=== PATIENT | male | born 1975 | race Hispanic/Latino ===

== ENCOUNTER 2023-03-20 21:39 | Emergency (ER) | payer BC ==
[~2023-03-20] VITALS: Ht 167.6 cm; Wt 88.0 kg
[2023-03-20 23:08] LABS: BASOPHILS % (AUTO) 1.5 % (0.0-5.0); EOSINOPHILS # (AUTO) 0.25 K/uL (0.00-0.70); EOSINOPHILS % (AUTO) 3.8 % (0.0-8.0); IMMATURE GRANULOCYTE ABSOLUTE 0.01 K/uL (0-1); LYMPHOCYTES # (AUTO) 3.1 K/uL (1.0-4.8); LYMPHOCYTES % (AUTO) 47.6 % (21.0-51.0); MEAN CORPUSCULAR HEMOGLOBIN 35.1 pg (27.0-33.0); MEAN CORPUSCULAR HGB CONC 40.8 g/dL (32.0-36.0); MEAN CORPUSCULAR VOLUME 86.2 fL (79-99); MONOCYTES # (AUTO) 0.4 K/uL (0.1-1.0); MONOCYTES % (AUTO) 6.6 % (3.0-13.0); NEUTROPHILS # (AUTO) 2.6 K/uL (1.8-7.7); NEUTROPHILS % (AUTO) 40.3 % (40.0-77.0); NUCLEATED RED BLOOD CELLS 0.3 % (0.0-0.19); PLATELET COUNT (AUTO) 266 K/uL (130-400); RED BLOOD CELL COUNT(AUTO) 4.64 MIL/uL (4.50-6.20); RED CELL DISTRIBUTION WIDTH 12.7 % (11.0-15.5); WHITE BLOOD COUNT (AUTO) 6.5 K/uL (4.8-10.8)
[2023-03-20 23:25] LABS: APPEARANCE,URINE CLEAR (CLEAR); BILIRUBIN,URINE NEGATIVE (NEGATIVE); COLOR,URINE LIGHT-YELLOW (YELLOW); GLUCOSE, URINE (UA) >=1000 mg/dL (NEGATIVE); KETONES,URINE NEGATIVE (NEGATIVE); LEUKOCYTE ESTERASE ,URINE NEGATIVE Leu/uL (NEGATIVE); NITRATE,URINE NEGATIVE (NEGATIVE); OCCULT BLOOD,URINE NEGATIVE (NEGATIVE); PROTEIN,URINE NEGATIVE (NEGATIVE); UROBILINOGEN,URINE 0.2 mg/dL (0.2-1.0)
[2023-03-20] MEDS ORDERED: FAMOTIDINE 20MG TAB PO ONE (23:30)
[2023-03-20] MEDS ORDERED: ONDANSETRON 4MG INJ IVP ONE (23:30)
[2023-03-20] MEDS ORDERED: MORPHINE 4 MG SYG IVP ONE (23:30)
[2023-03-20] MEDS ORDERED: 0.9%NACL 1000ML 1,000 ML IV ONE (23:30)
[2023-03-20 23:32] LABS: ADD UA MICROSCOPIC YES
[2023-03-20 23:35] LABS: RBC,URINE 0-1 /HPF (0-1); WBC,URINE 0-1 /HPF (0-1)
[2023-03-20 23:53] LABS: CREATININE 0.4 mg/dL (0.5-1.5); POTASSIUM 5.5 mmol/L (3.5-5.1)
[2023-03-20 23:58] LABS: ALBUMIN 3.6 g/dL (3.5-5.0); BILIRUBIN,TOTAL 0.5 mg/dL (0.2-1.0)
[2023-03-21 00:20] LABS: TOTAL PROTEIN, SERUM 7.9 g/dL (6.0-8.3)
[2023-03-21 01:00] LABS: ABG BASE EXCESS -0.7 mmol/L (-2.0-3.0); ABG HCO3 23.6 mmol/L (21.0-28.0); ABG OXYGEN SATURATION 97.1 % (95.0-99.0); ABG PCO2 38 mmHg (35-48); ABG PH 7.415 (7.35-7.450); CARBON MONOXIDE 0.6; DEVICE COMMENT LEFT RAD; HHb 2.9; PO2, ARTERIAL BG 88.4 mmHg (83.0-108.0); VENT MODE, BG ROOM AIR (ROOM AIR)
[2023-03-21] MEDS ORDERED: 0.9%NACL 1000ML 1,000 ML IV ONE (01:30)
[2023-03-21] MEDS ORDERED: IOHEXOL 350 MG/ML 100ML INFUS..BTL IV ONE (02:03)
[2023-03-21] MEDS ORDERED: FAMO20TA8 PO (04:06)
[2023-03-21 04:36] VITALS: BP 126/89; PULSE 72; RESP 18; O2SAT 98
== END 2023-03-21 04:38 | disposition home or self-care (01) ==
LOC: EDH 21:39
DX: K29.00 Acute gastritis without bleeding (principal); E11.65 Type 2 diabetes mellitus with hyperglycemia; E78.00 Pure hypercholesterolemia, unspecified; Z91.148 Patient's other noncompliance with medication regimen for other reason
CPT/HCPCS: 99284; 74177; 82947; 82435; 84132; 84295; 80053; 82803; 83690; 85025; 85018; 83605; 82010; 81001; 36415; 96374; 96361; 96375; 36600; J7030; J2405; J2270; Q9967